=== PATIENT | female | born 1970 | race Caucasian/White ===

== ENCOUNTER 2024-01-13 01:37 | Outpatient (CLI) | payer SELFPAY ==
--- NOTE | 2024-01-13 13:39 | DI.MAMMO_ITS ---
Exam(s) US BREAST LT COMPLETE US BREAST RT COMPLETE MG MAMMO DIAGNOSTIC BI EXAM: MG MAMMO DIAGNOSTIC BI AND COMPLETE BILATERAL BREAST ULTRASOUND CLINICAL HISTORY: Lt breast 4 x 3.5 cm mobile subareolar lump, N63.0. TECHNIQUE: BILATERAL CC AND MLO mammographic images were obtained with 3D tomosynthesis technique an d utilizing computer aided detection (CAD). NO SPOT VIEWS PERFORMED BILATERALLY BILATERAL COMPLETE BREAST ULTRASOUND performed including all 4 quadrants of both breasts as well as t he retroareolar regions of both axillary regions. COMPARISON: Prior of 2014 was reviewed. She has had interval mammograms at an outside institution. Patient presents with a palpable retroareolar region lump in the left breast. FINDINGS: DIAGNOSTIC BILATERAL MAMMOGRAM: A large well-defined slightly lobulated density in the immediate retroareolar region left breast marlyn esponding to her palpable finding. This measures 3.8 by 2.3 cm on the mammogram. It is shown to be a simple cyst on today's ultrasound. Also in the left breast is an asymmetric nodular density medial of center which is unchanged from 201 5 and therefore benign. There are no malignant-appearing microcalcification groups in left breast. No new architectural dist ortion or skin thickening-retraction. Right breast mammogram reveals a few asymmetric densities on the MLO view which are more evident than on the 2015 mammogram. These are equivocal on spot compression view. See ultrasound report. There are no malignant-appearing microcalcification groups in the right breast. No significant archi tectural distortion or skin thickening-traction. We proceeded with ultrasound... BILATERAL COMPLETE BREAST ULTRASOUND: LEFT BREAST ULTRASOUND: IN THE IMMEDIATE RETROAREOLAR REGION THERE IS A 3.4 X 1.8 CM SIMPLE CYST WHICH CORRESPONDS TO THE PAL PABLE FINDING. At the 1 o'clock position there is a 5 millimeter benign microcyst. There are no other focal findings in all 4 quadrants. Scanning of the left axilla is negative for ad enopathy. RIGHT BREAST ULTRASOUND: There are 3 findings at the 8 o'clock position corresponding to the findings on the mammogram. Two o f these are simple microcysts. The 3rd finding at this level is a wider than taller nodular density measuring approximately 10 x 5 m m and probably a conglomeration microcysts or possibly fibroadenoma. Exhibits neutral through transm ission. No other focal ultrasound findings in all 4 quadrants of the right breast. Scanning of the right axilla is negative for adenopathy. IMPRESSION: 1. There is a large benign cyst in the immediate retroareolar region of the left breast measuring 3.4 x 1.8 cm, this corresponding to the palpable finding. 2. Findings in the opposite-right breast also as described above at 8 o'clock position as seen on ult rasound. One of the findings at this location in the right breast requires follow-up ultrasound in 6 months. Appropriate follow-up is repeat breast imaging in 6 months. The patient was informed of the findings and follow-up recommendations by myself prior to leaving the department today. BI-RADS Category 3 - 6 month - Probably Benign Finding: Recommend follow-up mammography in 6 months Breast Density - Category B - Scattered areas of fibroglandular density Breast density Category C or D implies that the patient has dense breast tissue. Dense breast tissue can make it harder to find cancer on a mammogram. Dense breast tissue is also associated with an incr eased risk of breast cancer. This information about the result of the mammogram report was provided to the patient to raise their awareness. Use this report when you speak with the patient about their risks for breast cancer, which includes their family history. At that time, you may recommend additional screening tests (Ultrasoun d or MRI) as these tests may add significant information. A negative radiographic report should not delay biopsy if a dominant or clinically suspicious mass is present. Up to ten percent of cancers are not identified on mammography. A negative report may reinforce clinical impression. Adenosis and dense breasts may obscure an underlying neoplasm. False positive reports average 6 to 10%. Patient will receive a letter notifying them of these results.
== END 2024-01-13 01:57 ==
PROVIDERS: Visit Provider Nurse Practitioner Adult Health
DX: Z12.31 Encounter for screening mammogram for malignant neoplasm of breast (principal); N63.0 Unspecified lump in unspecified breast
CPT/HCPCS: 76642; 77062; 77066; G0279

== ENCOUNTER 2024-08-28 13:41 | Emergency (ER) | payer SELFPAY ==
[2024-08-28] VITALS (7 sets, daily range): BP systolic 108–131; BP diastolic 69–89; PULSE 64–69; RESP 17–23; TEMP 36.4; O2SAT 96–97
--- NOTE | 2024-08-28 13:45 | RT.EKG_ITS ---
APPROVED REPORT Exam: Resting ECG Reason for Exam: LOC Patient Location: E HR:64 bpm ECG Measurements Heart Rate 64 AXIS LA 145 P 28 QRSd 92 QRS -27 QT 445 T 2 QTc 460 Conclusion Sinus rhythm, rate 64 No interval abnormalities No STEMI T wave inversion lead III, aVF, no priors available for comparison
--- NOTE | 2024-08-28 14:00 | DI.CT_ITS ---
Exam(s) CT HEAD CERVICAL SPINE WO EXAM: CT HEAD CERVICAL SPINE WO CLINICAL HISTORY: fall. TECHNIQUE: Imaging Protocol: Axial computed tomography images with coronal and sagittal reformatted images were created and reviewed COMPARISON: No exams were available for comparison FINDINGS: CT Head: Ventricles and Extra axial spaces: There is effacement of the right temporal horn. Hemorrhage: There are bilateral acute small subdural hemorrhages. There is a large right temporal lo be intraparenchymal hemorrhage with surrounding edema. There is effacement of the right temporal hor n but intraventricular extension should also be considered. There is intraparenchymal hemorrhage see n in the right left frontal lobes. Subarachnoid hemorrhage is seen bilaterally in the inferior aspec ts of both the right and left frontal lobes. Cerebral parenchyma: See the above section under hemorrhage. Midline shift: There is a mild midline shift anteriorly of 3-4 mm. Brainstem/Cerebellum: Normal. Calvarium: Normal. Visualized Paranasal sinuses/Mastoids: Clear. Soft Tissues: Unremarkable. CT Cervical Spine: Bones: No acute fracture or subluxation. There is reversal of the normal cervical lordosis. This may be due to muscle spasm or patient positioning. Age-appropriate degenerative changes are seen, parti cularly at C5-6 and C6-C7. Soft Tissues: Unremarkable. Lung Apices: Clear. IMPRESSION: 1. Small bilateral acute subdural hemorrhages. 2. Intraparenchymal hemorrhages in the frontal lobes bilaterally and a large area of intraparenchymal hemorrhage in the right temporal lobe. 3. Small subarachnoid hemorrhage seen inferiorly in the frontal lobes bilaterally. 4. Mild midline shift anteriorly of 3-4 mm. 5. Resultant effacement of the right temporal horn. 6. No skull fracture is identified. 7. No acute fracture or subluxation in the cervical spine. 8. Findings were discussed with Dr. Phillips at 3 p.m. on 08/28/2024. RADIATION DOSE DELIVERED: 1,335.85mGy.cm Total DLP DATA REPOSITORY: All CT scans at this facility are submitted to the National Radiology Data Registry (NRDR) Dose Index Registry (DIR) with the [employer] ([employer]). RADIATION OPTIMIZATION: All CT scans at this facility use at least one of these dose optimization te chniques: automated exposure control; mA and/or kV adjustment per patient size (includes targeted exa ms where dose is matched to clinical indication); or iterative reconstruction.
[2024-08-28 14:16] LABS: Abs Immature Grans 0.07 10^3/uL (0.0-0.06); Absolute Basophil Count 0.04 10^3/uL (0.0-0.2); Absolute Monocyte Count 0.55 10^3/uL (0.1-0.8); Absolute Neutrophil Count 4.78 10^3/uL (1.2-6.7); Basophils % 0.6 %; HCT 36.5 % (36.0-46.0); HGB 12.6 g/dL (11.2-15.7); Immature Grans % 1.1 %; Lymphocytes % 15.5 %; MCH 34.6 pg (27.0-33.0); MCHC 34.5 % (32.0-36.0); MCV 100 fL (80-95); Monocytes % 8.5 %; Neutrophils % 74.3 %; Platelet Count 139 10^3/uL (130-400); RBC 3.64 10^6/uL (3.93-5.22); RDW 12.3 % (11.7-14.6); RDW-SD 45.6 fL; WBC 6.44 10^3/uL (4.4-10.8)
[2024-08-28 14:34] LABS: INR 1.1 (0.9-1.1); PTT Activated 27.3 sec (20.6-30.2)
[2024-08-28 14:42] LABS: ALT 117 U/L (14-59); AST 192 U/L (15-37); Albumin 3.4 g/dL (3.4-5.0); Alkaline Phosphatase 119 U/L (46-116); Anion Gap 15.1 mmol/L (3-11); BUN 17 mg/dL (7-18); Bilirubin, Total 1.4 mg/dL (0.2-1.0); CO2 20.9 mmol/L (21.0-32.0); Calcium 9.1 mg/dL (8.5-10.1); Chloride 98 mmol/L (98-107); Estimated GFR 67.78 (mL/min/1.73m2); Glucose 109 mg/dL (74-106); Lipase 107 U/L (<78); Sodium 134 mmol/L (136-145); Total Protein 7.7 g/dL (6.4-8.2)
--- NOTE | 2024-08-28 15:09 | W.ED.GENAD ---
Discharge Plan Disposition Patient Disposition: Transfer-Acute Inpatient Care Specific Acute Inpt Facility: [facility] Condition: Critical Discharge Details Chief Complaint: HeadInjury Clinical Impression: Fall, ICH (intracerebral hemorrhage), Alcohol abuse, Acute confusion Primary Care Provider: Unknown,Unknown ED Provider: Jerzy Roach Home Meds and New Rx's Prescriptions: No Action lisinopril 5 mg tablet 5 mg PO DAILY gabapentin 100 mg capsule 100 mg PO DAILY Control Pill Patient Comments: does not know which one Discharge Data Discharge Date/Time-TO BE ENTERED AT DEPARTURE: 08/28/24 16:12 HPI General Date/Time Provider Initiated Documentation: 08/28/24 13:54. Limitations to Documentation: no limitations. Information obtained by: patient and family. HPI Narrative: 53-year-old female without significant past medical history presents for evaluation after a fall. She reports that the fall occurred on Wednesday night. She was walking in the dark in her home and opened the wrong door and fell down the stairs. Unknown if there was loss of consciousness. Her reports that since that time she seems to be a little more sleepy. And is falling asleep quite a bit. She seems to be a little bit confused as well. Yesterday she did not remember that she had already taken him to the hospital for his infusion. Today while he was getting his infusion, the patient was observed by nursing staff in the infusion center to be falling asleep and kind of mumbling and seeming to talk to herself or be confused in someway. The nurses encouraged her to bring her to the emergency department for evaluation. She reports pain in her bilateral elbows and left hip as well. She denies any aspirin use or any anticoagulation. She denies any drug use. She reports occasional alcohol use Related Data Home Medications ?Medication ?Instructions ?Recorded ?Confirmed Control Pill 08/28/24 gabapentin 100 mg capsule 100 mg PO DAILY 08/28/24 08/28/24 lisinopril 5 mg tablet 5 mg PO DAILY 08/28/24 08/28/24 General Stated Complaint: HeadInjury KATHY: 3 Exam Narrative Exam Narrative: Review of Systems: All systems reviewed & are unremarkable except as noted in HPI and below Well-developed, no acute distress NCAT no skull tenderness or deformity noted Large bruise at the base of the cervical spine that is tender to palpation PERRL, normal conjunctiva RRR no murmur Unlabored respiratory effort clear bilaterally, no chest wall tenderness Nondistended abdomen soft nontender bruising noted over right shoulder, bilateral posterior elbows with bruising but normal ROM/ no effusion LLE with limited ROM, she attributes to hip pain. no bruise noted over left hip. no focal neurologic deficits- seems sleepy, but AOx4 Appropriate mood and affect Course Vital Signs Vital signs: Vital Signs Temperature 36.4 C 08/28/24 13:47 Pulse 69 08/28/24 13:47 Respiratory Rate 20 08/28/24 13:47 Blood Pressure 108/74 08/28/24 13:47 Pulse Oximetry 96 08/28/24 13:47 Temperature 36.4 C 08/28/24 13:47 Pulse 69 08/28/24 13:47 Respiratory Rate 20 08/28/24 13:47 Respiratory Effort Normal 08/28/24 14:10 Respiratory Depth Normal 08/28/24 14:10 Respiratory Pattern Normal 08/28/24 14:10 Blood Pressure 108/74 08/28/24 13:47 Blood Pressure Position Sitting 08/28/24 13:47 Pulse Oximetry 96 08/28/24 13:47 Oxygen Delivery Method Room Air 08/28/24 13:47 Oxygen Flow Rate 0 08/28/24 13:47 Lab/Test Results Lab/Test Results: Laboratory Tests Range/Units 08/28/24 14:06 WBC (4.4-10.8) 10^3/uL 6.44 RBC (3.93-5.22) 10^6/uL 3.64 L Hgb (11.2-15.7) g/dL 12.6 Hct (36.0-46.0) % 36.5 MCV (80-95) fL 100 H MCH (27.0-33.0) pg 34.6 H MCHC (32.0-36.0) % 34.5 RDW (11.7-14.6) % 12.3 Plt Count (130-400) 10^3/uL 139 MPV (8.0-11.0) fL 9.0 Immature Gran % % 1.1 Neutrophils % % 74.3 Lymphocytes % % 15.5 Monocytes % % 8.5 Eosinophils % % 0.0 Basophils % % 0.6 Nucleated RBC % (0.0-0.3) % 0.0 Absolute Neutrophils (1.2-6.7) 10^3/uL 4.78 Absolute Lymphocytes (1.2-3.4) 10^3/uL 1.00 L Absolute Monocytes (0.1-0.8) 10^3/uL 0.55 Absolute Eosinophils (0.0-0.7) 10^3/uL 0.00 Absolute Basophils (0.0-0.2) 10^3/uL 0.04 PT (9.1-11.1) sec 11.0 INR (0.9-1.1) 1.1 APTT (20.6-30.2) sec 27.3 Sodium (136-145) mmol/L 134 L Potassium (3.5-5.1) mmol/L 4.0 Chloride (98-107) mmol/L 98 Carbon Dioxide (21.0-32.0) mmol/L 20.9 L Anion Gap (3-11) mmol/L 15.1 H BUN (7-18) mg/dL 17 Creatinine (0.55-1.02) mg/dL 1.0 Est GFR (CKD-EPI 2020) (mL/min/1.73m2) 67.78 Glucose (74-106) mg/dL 109 H Calcium (8.5-10.1) mg/dL 9.1 Total Bilirubin (0.2-1.0) mg/dL 1.4 H AST (15-37) U/L 192 H ALT (14-59) U/L 117 H Alkaline Phosphatase (46-116) U/L 119 H Total Protein (6.4-8.2) g/dL 7.7 Albumin (3.4-5.0) g/dL 3.4 Lipase (<78) U/L 107 H Medical Decision Making Emergent evaluation after a fall. Fall occurred 2 days ago but just now presenting. Extensive bruising noted. Concern for mental status changes per the 's report. The patient was sent for CT imaging as well as plain films of her extremities. On review of the CT scan, large intracranial bleeding was noted. It seems that the patient is minimizing her alcohol consumption. And with pushing of this subject, she does admit to taking a shot this morning and drinking on a fairly regular basis. I have added an alcohol level onto her workup. I immediately initiated transfer process to trauma center. The patient's left leg movement difficulty is more concerning now for possible true weakness versus her reported difficulty moving it secondary to hip pain. Given the extent of the head bleed, I became more concerned that the patient may have additional traumatic injuries, so additional CT imaging of chest abdomen pelvis were ordered to evaluate for further traumatic injury. i Reached out to the [facility] trauma center and spoke with neurosurgery resident. They are recommending a CTA and Keppra load which she was given 1.5 g. The patient was accepted for transfer fairly quickly and transportation services were available so I was not able to get the additional imaging done prior to transport as I did not want to delay her transport to the outside facility. Patient and family were updated on her acute traumatic injuries and the necessity for an emergent transfer to outside facility. Quality:SDOH Health Related Social Needs: No Data to Display Critical Care Time Critical Care Time Critical Care Time: Yes Total Critical Care Time: 35 Attestation: CRITICAL CARE Upon my evaluation, this patient had a high probability of imminent or life-threatening deterioration due to traumatic intracranial bleeding which required my direct attention, intervention, and personal management. I have personally provided 35 minutes of critical care time exclusive of time spent on separately billable procedures. Time includes review of laboratory data, radiology results, discussion with consultants, and monitoring for potential decompensation. Interventions were performed as documented above [facility] All Active Problems (Updated 08/28/24 @ 21:52 by Jerzy Roach MD) Acute confusion (Acute) Alcohol abuse (Chronic) ICH (intracerebral hemorrhage) (Acute) Fall (Acute) Social History Smoking/Tobacco Use Status: Never Smoking risk assessment performed?: Yes Alcohol Intake: current Alcohol Intake frequency: a few times a week Alcohol type: hard liquor Drug use: Never Housing: house Additional Social history: [employer]
[2024-08-28 16:43] LABS: ETHANOL BLOOD 179.4 mg/dL (<10)
== END 2024-08-28 16:12 | disposition short-term general hospital (02) ==
LOC: ER 15:43
PROVIDERS: Emergency Provider Emergency Medicine
DX: S06.340A Traumatic hemorrhage of right cerebrum without loss of consciousness, initial encounter (principal); R41.0 Disorientation, unspecified; F10.10 Alcohol abuse, uncomplicated; W10.8XXA Fall (on) (from) other stairs and steps, initial encounter; Y93.01 Activity, walking, marching and hiking; Y92.018 Other place in single-family (private) house as the place of occurrence of the external cause
CPT/HCPCS: 36415; 80053; 83690; 93005; 96374; 99285; 70450; 72125; 80320; 85025; 85610; 85730; 93010; J1953